=== PATIENT | female | born 1950 | race Caucasian/White ===

== ENCOUNTER 2019-06-26 16:20 | Inpatient (IN) | payer MEDICARE, BC ==
[~2019-06-26] VITALS: Ht 160 cm; Wt 70.6 kg
[2019-06-26] MEDS ORDERED: PENDING SANTYL ORDER FOR WOUND CARE XX PRN (17:00)
[2019-06-26 17:30] VITALS: BP 113/58; PULSE 78; RESP 20
[2019-06-26] MEDS ORDERED: BISACODYL (EC) 5 MG TAB PO PRN (17:30)
[2019-06-26] MEDS ORDERED: LACTULOSE 30ML CUP PO PRN (17:30)
[2019-06-26] MEDS ORDERED: DOCUSATE SODIUM 100 MG CAP PO PRN (17:30)
[2019-06-26] MEDS ORDERED: SALINE 0.65% 45 ML NAS SPRAY NASAL PRN (18:00)
[2019-06-26] MEDS ORDERED: MAGNESIUM HYDROXIDE 30ML CUP PO PRN (18:00)
[2019-06-26] MEDS: HYDROCODONE/APAP (7.5/325) TAB PO PRN ×2 (18:21→22:58)
[2019-06-26] MEDS: POTASSIUM CHLORIDE (SR) 20 MEQ TAB PO SCH (18:57)
[2019-06-26] MEDS: FUROSEMIDE 40 MG TAB PO SCH (18:57)
[2019-06-26] MEDS: IPRATROPIUM (NEB) 0.5 MG/2.5 ML AMP HHN SCH (19:46)
[2019-06-26] MEDS: LEVALBUTEROL (NEB) 0.31 MG/3 ML AMP HHN SCH (19:46)
[2019-06-26] MEDS: BUDESONIDE (NEB) 0.25 MG/2 ML AMP HHN SCH (19:47)
[2019-06-26 20:00] VITALS: BP 107/62; PULSE 68; RESP 18
[2019-06-26] MEDS: NYSTATIN/TRIAMCINOLONE 15 GM CR TOP SCH (21:00)
[2019-06-26] MEDS: SENNA TAB PO SCH (21:00)
[2019-06-26] MEDS: APIXABAN 5 MG TABLET PO SCH (21:06)
[2019-06-26] MEDS: traZODone 50 MG TAB PO PRN (21:06)
[2019-06-27] VITALS (7 sets, daily range): BP systolic 96–141; BP diastolic 43–75; PULSE 76–100; RESP 16–20
[2019-06-27] MEDS: LEVALBUTEROL (NEB) 0.31 MG/3 ML AMP HHN SCH ×4 (01:06→20:46)
[2019-06-27] MEDS: IPRATROPIUM (NEB) 0.5 MG/2.5 ML AMP HHN SCH ×4 (01:06→20:46)
[2019-06-27] MEDS: LEVOTHYROXINE 75 MCG TAB NGT SCH (06:03)
[2019-06-27] MEDS: FUROSEMIDE 40 MG TAB PO SCH ×2 (06:04→17:49)
[2019-06-27] MEDS: HYDROCODONE/APAP (7.5/325) TAB PO PRN ×4 (06:05→22:24)
[2019-06-27] MEDS: POTASSIUM CHLORIDE (SR) 20 MEQ TAB PO SCH ×2 (08:50→17:49)
[2019-06-27] MEDS: APIXABAN 5 MG TABLET PO SCH ×2 (08:50→21:49)
[2019-06-27] MEDS: THIAMINE 100 MG TAB PO SCH (08:51)
[2019-06-27] MEDS: NYSTATIN/TRIAMCINOLONE 15 GM CR TOP SCH ×2 (08:51→21:00)
[2019-06-27] MEDS: DILTIAZEM (CD) 180 MG CAP PO SCH (08:56)
[2019-06-27] MEDS ORDERED: ACETAZOLAMIDE 250 MG TAB PO SCH (09:00)
[2019-06-27] MEDS: BUDESONIDE (NEB) 0.25 MG/2 ML AMP HHN SCH ×2 (09:23→20:46)
[2019-06-27] MEDS ORDERED: HYDROCODONE/APAP (7.5/325) TAB PO PRN (16:00)
[2019-06-27] MEDS: SENNA TAB PO SCH (21:00)
[2019-06-27] MEDS: traZODone 50 MG TAB PO PRN (21:49)
[2019-06-28 02:00] VITALS: BP 132/70; PULSE 77; RESP 18
[2019-06-28] MEDS: LEVALBUTEROL (NEB) 0.31 MG/3 ML AMP HHN SCH ×4 (02:00→20:17)
[2019-06-28] MEDS: IPRATROPIUM (NEB) 0.5 MG/2.5 ML AMP HHN SCH ×4 (02:00→20:17)
[2019-06-28] MEDS: HYDROCODONE/APAP (7.5/325) TAB PO PRN ×4 (04:58→22:53)
[2019-06-28] MEDS: LEVOTHYROXINE 75 MCG TAB NGT SCH (06:41)
[2019-06-28] MEDS: FUROSEMIDE 40 MG TAB PO SCH ×2 (06:41→18:02)
[2019-06-28 07:00] VITALS: BP 140/57; PULSE 89; RESP 18
[2019-06-28] MEDS: BUDESONIDE (NEB) 0.25 MG/2 ML AMP HHN SCH ×2 (08:11→20:17)
[2019-06-28] MEDS: APIXABAN 5 MG TABLET PO SCH ×2 (09:24→21:26)
[2019-06-28] MEDS: THIAMINE 100 MG TAB PO SCH (09:24)
[2019-06-28] MEDS: POTASSIUM CHLORIDE (SR) 20 MEQ TAB PO SCH ×2 (09:25→18:01)
[2019-06-28] MEDS: DILTIAZEM (CD) 180 MG CAP PO SCH (09:28)
[2019-06-28] MEDS: NYSTATIN/TRIAMCINOLONE 15 GM CR TOP SCH ×2 (09:29→21:00)
[2019-06-28 14:00] VITALS: BP 119/75; PULSE 84; RESP 18
[2019-06-28 19:46] VITALS: BP 112/60; PULSE 83; RESP 18
[2019-06-28] MEDS: SENNA TAB PO SCH (21:00)
[2019-06-28] MEDS: traZODone 50 MG TAB PO PRN (21:26)
[2019-06-29] MEDS: LEVALBUTEROL (NEB) 0.31 MG/3 ML AMP HHN SCH ×4 (01:50→20:41)
[2019-06-29] MEDS: IPRATROPIUM (NEB) 0.5 MG/2.5 ML AMP HHN SCH ×4 (01:50→20:41)
[2019-06-29 02:00] VITALS: BP 118/71; PULSE 79; RESP 18
[2019-06-29] MEDS: HYDROCODONE/APAP (7.5/325) TAB PO PRN ×6 (03:07→22:19)
[2019-06-29 06:14] VITALS: BP 134/63; PULSE 83
[2019-06-29] MEDS: FUROSEMIDE 40 MG TAB PO SCH ×2 (06:26→17:33)
[2019-06-29] MEDS: LEVOTHYROXINE 75 MCG TAB PO SCH (06:26)
[2019-06-29 07:30] VITALS: BP 145/70; PULSE 88; RESP 20
[2019-06-29] MEDS: BUDESONIDE (NEB) 0.25 MG/2 ML AMP HHN SCH ×2 (07:58→20:41)
[2019-06-29] MEDS: POTASSIUM CHLORIDE (SR) 20 MEQ TAB PO SCH ×2 (08:44→17:34)
[2019-06-29] MEDS: THIAMINE 100 MG TAB PO SCH (08:45)
[2019-06-29] MEDS: APIXABAN 5 MG TABLET PO SCH ×2 (08:45→21:27)
[2019-06-29] MEDS: DILTIAZEM (CD) 180 MG CAP PO SCH (08:45)
[2019-06-29] MEDS: NYSTATIN/TRIAMCINOLONE 15 GM CR TOP SCH ×2 (09:00→21:28)
[2019-06-29] MEDS ORDERED: METOLAZONE 2.5 MG TAB PO ONE (10:00)
[2019-06-29 14:00] VITALS: BP 124/66; PULSE 83; RESP 20
[2019-06-29 19:13] VITALS: BP 142/81; PULSE 89; RESP 20
[2019-06-29] MEDS: SENNA TAB PO SCH (21:00)
[2019-06-29] MEDS: traZODone 50 MG TAB PO PRN (21:27)
[2019-06-30 02:00] VITALS: BP 134/68; PULSE 85; RESP 18
[2019-06-30] MEDS: HYDROCODONE/APAP (7.5/325) TAB PO PRN ×5 (02:09→23:37)
[2019-06-30] MEDS: IPRATROPIUM (NEB) 0.5 MG/2.5 ML AMP HHN SCH ×4 (02:20→19:58)
[2019-06-30] MEDS: LEVALBUTEROL (NEB) 0.31 MG/3 ML AMP HHN SCH ×4 (02:20→19:59)
[2019-06-30] MEDS: FUROSEMIDE 40 MG TAB PO SCH (06:22)
[2019-06-30] MEDS: LEVOTHYROXINE 75 MCG TAB PO SCH (06:22)
[2019-06-30 07:00] VITALS: BP 127/78; PULSE 81; RESP 19
[2019-06-30] MEDS: BUDESONIDE (NEB) 0.25 MG/2 ML AMP HHN SCH ×2 (09:18→19:59)
[2019-06-30] MEDS: ACETAZOLAMIDE 250 MG TAB PO SCH ×2 (09:25→20:18)
[2019-06-30] MEDS: THIAMINE 100 MG TAB PO SCH (09:25)
[2019-06-30] MEDS: DILTIAZEM (CD) 180 MG CAP PO SCH (09:25)
[2019-06-30] MEDS: APIXABAN 5 MG TABLET PO SCH ×2 (09:25→20:18)
[2019-06-30] MEDS: POTASSIUM CHLORIDE (SR) 20 MEQ TAB PO SCH ×2 (09:25→18:05)
[2019-06-30] MEDS: NYSTATIN/TRIAMCINOLONE 15 GM CR TOP SCH ×2 (09:26→20:20)
[2019-06-30 14:00] VITALS: BP 136/63; PULSE 78; RESP 20
[2019-06-30 19:00] VITALS: BP 121/66; RESP 18
[2019-06-30] MEDS: SENNA TAB PO SCH (20:26)
[2019-06-30] MEDS: traZODone 50 MG TAB PO PRN (21:08)
[2019-07-01] MEDS: IPRATROPIUM (NEB) 0.5 MG/2.5 ML AMP HHN SCH ×4 (01:51→19:27)
[2019-07-01] MEDS: LEVALBUTEROL (NEB) 0.31 MG/3 ML AMP HHN SCH ×4 (01:51→19:27)
[2019-07-01 02:29] VITALS: BP 128/66; PULSE 80; RESP 17
[2019-07-01] MEDS: FUROSEMIDE 40 MG TAB PO SCH (06:12)
[2019-07-01] MEDS: LEVOTHYROXINE 75 MCG TAB PO SCH (06:12)
[2019-07-01 06:13] VITALS: BP 120/62; PULSE 76
[2019-07-01] MEDS: HYDROCODONE/APAP (7.5/325) TAB PO PRN ×2 (06:14→14:30)
[2019-07-01 07:00] VITALS: BP 110/72; PULSE 72; RESP 18
[2019-07-01] MEDS: POTASSIUM CHLORIDE (SR) 20 MEQ TAB PO SCH ×2 (08:22→17:50)
[2019-07-01] MEDS: BUDESONIDE (NEB) 0.25 MG/2 ML AMP HHN SCH ×2 (08:22→19:27)
[2019-07-01] MEDS: ACETAZOLAMIDE 250 MG TAB PO SCH ×2 (08:23→20:16)
[2019-07-01] MEDS: THIAMINE 100 MG TAB PO SCH (08:23)
[2019-07-01] MEDS: APIXABAN 5 MG TABLET PO SCH ×2 (08:23→20:18)
[2019-07-01] MEDS ORDERED: POTASSIUM CHLORIDE (SR) 10 MEQ TAB PO ONE (09:00)
[2019-07-01] MEDS: NYSTATIN/TRIAMCINOLONE 15 GM CR TOP SCH ×2 (09:00→22:12)
[2019-07-01] MEDS: DILTIAZEM (CD) 180 MG CAP PO SCH (09:00)
[2019-07-01 14:00] VITALS: BP 126/64; PULSE 91; RESP 18
[2019-07-01 20:00] VITALS: BP 107/61; PULSE 116; RESP 18
[2019-07-01] MEDS: ACETAMINOPHEN 325 MG TAB PO PRN (20:53)
[2019-07-01] MEDS: traZODone 50 MG TAB PO PRN (20:53)
[2019-07-01] MEDS: SENNA TAB PO SCH (21:00)
[2019-07-02] MEDS: IPRATROPIUM (NEB) 0.5 MG/2.5 ML AMP HHN SCH ×4 (01:52→21:43)
[2019-07-02] MEDS: LEVALBUTEROL (NEB) 0.31 MG/3 ML AMP HHN SCH ×4 (01:53→21:43)
[2019-07-02 02:04] VITALS: BP 142/87; PULSE 114; RESP 18
[2019-07-02] MEDS: ACETAMINOPHEN 325 MG TAB PO PRN ×2 (04:48→22:59)
[2019-07-02] MEDS: HYDROCODONE/APAP (7.5/325) TAB PO PRN ×3 (05:56→20:55)
[2019-07-02] MEDS: LEVOTHYROXINE 75 MCG TAB PO SCH (05:57)
[2019-07-02 06:03] VITALS: BP 133/66; PULSE 89
[2019-07-02] MEDS: FUROSEMIDE 40 MG TAB PO SCH (06:03)
[2019-07-02 07:00] VITALS: BP 138/81; PULSE 76; RESP 18
[2019-07-02] MEDS: BUDESONIDE (NEB) 0.25 MG/2 ML AMP HHN SCH ×2 (08:38→20:00)
[2019-07-02] MEDS: DILTIAZEM (CD) 180 MG CAP PO SCH (08:55)
[2019-07-02] MEDS: ACETAZOLAMIDE 250 MG TAB PO SCH ×2 (08:55→20:19)
[2019-07-02] MEDS: POTASSIUM CHLORIDE (SR) 20 MEQ TAB PO SCH ×2 (08:56→17:40)
[2019-07-02] MEDS: APIXABAN 5 MG TABLET PO SCH ×2 (08:56→20:19)
[2019-07-02] MEDS: THIAMINE 100 MG TAB PO SCH (08:56)
[2019-07-02] MEDS: NYSTATIN/TRIAMCINOLONE 15 GM CR TOP SCH ×2 (09:00→20:21)
[2019-07-02 14:00] VITALS: BP 114/66; PULSE 74; RESP 18
[2019-07-02 20:00] VITALS: BP 142/65; PULSE 77; RESP 18
[2019-07-02] MEDS: SENNA TAB PO SCH (21:00)
[2019-07-02] MEDS: traZODone 50 MG TAB PO PRN (22:57)
[2019-07-03] MEDS: IPRATROPIUM (NEB) 0.5 MG/2.5 ML AMP HHN SCH ×4 (01:34→22:28)
[2019-07-03] MEDS: LEVALBUTEROL (NEB) 0.31 MG/3 ML AMP HHN SCH ×4 (01:34→22:28)
[2019-07-03 02:00] VITALS: BP 140/67; PULSE 100; RESP 20
[2019-07-03] MEDS: HYDROCODONE/APAP (7.5/325) TAB PO PRN ×3 (06:23→20:55)
[2019-07-03] MEDS: LEVOTHYROXINE 75 MCG TAB PO SCH (06:23)
[2019-07-03] MEDS: FUROSEMIDE 40 MG TAB PO SCH (06:29)
[2019-07-03 07:30] VITALS: BP 142/67; PULSE 85; RESP 20
[2019-07-03] MEDS ORDERED: POTASSIUM CHLORIDE (SR) 20 MEQ TAB PO STA (08:19)
[2019-07-03] MEDS: BUDESONIDE (NEB) 0.25 MG/2 ML AMP HHN SCH ×2 (08:44→22:28)
[2019-07-03] MEDS: THIAMINE 100 MG TAB PO SCH (08:57)
[2019-07-03] MEDS: POTASSIUM CHLORIDE (SR) 20 MEQ TAB PO SCH ×2 (08:57→17:16)
[2019-07-03] MEDS: APIXABAN 5 MG TABLET PO SCH ×2 (08:57→20:55)
[2019-07-03] MEDS: DILTIAZEM (CD) 180 MG CAP PO SCH (09:00)
[2019-07-03] MEDS: NYSTATIN/TRIAMCINOLONE 15 GM CR TOP SCH ×2 (09:01→20:56)
[2019-07-03 14:00] VITALS: BP 119/62; PULSE 76; RESP 18
[2019-07-03 20:00] VITALS: BP 123/60; PULSE 76; RESP 18
[2019-07-03] MEDS: SENNA TAB PO SCH (21:00)
[2019-07-03] MEDS: ACETAMINOPHEN 325 MG TAB PO PRN (23:30)
[2019-07-03] MEDS: traZODone 50 MG TAB PO PRN (23:30)
[2019-07-04] MEDS: LEVALBUTEROL (NEB) 0.31 MG/3 ML AMP HHN SCH ×2 (02:00→08:28)
[2019-07-04] MEDS: IPRATROPIUM (NEB) 0.5 MG/2.5 ML AMP HHN SCH ×2 (02:00→08:28)
[2019-07-04] MEDS: LEVOTHYROXINE 75 MCG TAB PO SCH (06:06)
[2019-07-04] MEDS: FUROSEMIDE 40 MG TAB PO SCH (06:07)
[2019-07-04] MEDS: HYDROCODONE/APAP (7.5/325) TAB PO PRN ×2 (06:07→10:31)
[2019-07-04 07:30] VITALS: BP 142/88; PULSE 100; RESP 18
[2019-07-04] MEDS: POTASSIUM CHLORIDE (SR) 20 MEQ TAB PO SCH (08:25)
[2019-07-04] MEDS: APIXABAN 5 MG TABLET PO SCH (08:26)
[2019-07-04] MEDS: THIAMINE 100 MG TAB PO SCH (08:26)
[2019-07-04] MEDS: DILTIAZEM (CD) 180 MG CAP PO SCH (08:26)
[2019-07-04] MEDS: BUDESONIDE (NEB) 0.25 MG/2 ML AMP HHN SCH (08:29)
[2019-07-04] MEDS: NYSTATIN/TRIAMCINOLONE 15 GM CR TOP SCH (08:29)
== END 2019-07-04 11:30 | disposition home health service (06) | DRG 948 ==
LOC: VRC 16:20
PROVIDERS: ADMIT Physical Medicine & Rehabilitation; ATTEND Internal Medicine
DX: R53.81 Other malaise (principal); F11.20 Opioid dependence, uncomplicated; E87.2 Acidosis; E87.3 Alkalosis; I48.0 Paroxysmal atrial fibrillation; D75.1 Secondary polycythemia; M19.90 Unspecified osteoarthritis, unspecified site; Z74.09 Other reduced mobility; I05.9 Rheumatic mitral valve disease, unspecified; I27.20 Pulmonary hypertension, unspecified; I87.2 Venous insufficiency (chronic) (peripheral); I89.0 Lymphedema, not elsewhere classified; Z95.2 Presence of prosthetic heart valve; E03.9 Hypothyroidism, unspecified; I11.0 Hypertensive heart disease with heart failure; I50.9 Heart failure, unspecified; R60.0 Localized edema; G47.00 Insomnia, unspecified; J43.9 Emphysema, unspecified
CPT/HCPCS: 80048; 80053; 81001; 85025; 87081; 87086; 94640; 97110; 97112; 97116; 97150; 97163; 97166; 97530; 97535